=== PATIENT | male | born 1990 | race American Indian/Alaskan Native ===

== ENCOUNTER 2017-09-17 18:31 | Emergency (ER) | payer OTHER ==
[2017-09-17 18:46] VITALS: BP 136/79
[2017-09-17] MEDS ORDERED: Ibuprofen 600 MG Tab PO ONE (19:21)
[2017-09-17] MEDS ORDERED: Amoxicillin 500 MG Cap PO ONE (19:21)
--- NOTE | 2017-09-17 19:30 | EDM.PDOC ---
ED HPI GENERAL MEDICAL PROBLEM - General Chief Complaint: ENT Problem Stated Complaint: toothache Time Seen by Provider: 09/17/17 19:20 Source of Information: Reports: Patient History Limitations: Reports: No Limitations - History of Present Illness INITIAL COMMENTS - FREE TEXT/NARRATIVE: c/o toothache left upper wisdom tooth for past few days now making back of throat hurt Left Upper Tooth/Teeth Pain Score (Numeric/FACES): 9 - Related Data Allergies Allergy/AdvReac Type Severity Reaction Status Date / Time No Known Allergies Allergy Verified 09/17/17 18:45 Home Meds: Home Meds . [No Known Home Meds] 02/20/16 [History] Past Medical History HEENT History: Reports: None Cardiovascular History: Reports: None Respiratory History: Reports: None Gastrointestinal History: Reports: None Genitourinary History: Reports: None Musculoskeletal History: Reports: None Neurological History: Reports: None Psychiatric History: Reports: None Endocrine/Metabolic History: Reports: None Hematologic History: Reports: None Immunologic History: Reports: None Oncologic (Cancer) History: Reports: None Dermatologic History: Reports: None - Infectious Disease History Infectious Disease History: Reports: None - Past Surgical History Head Surgeries/Procedures: Reports: None Social & Family History - Family History Family Medical History: Noncontributory - Tobacco Use Smoking Status *Q: Current Every Day Smoker Years of Tobacco use: 10 Packs/Tins Daily: 1 Used Tobacco, but Quit: No - Recreational Drug Use Recreational Drug Use: No ED ROS ENT - Review of Systems Review Of Systems: See Below Constitutional: Reports: Fever HEENT: Reports: Dental Pain (left upper wisdom tooth radiating to tonsil) Respiratory: Reports: No Symptoms Cardiovascular: Reports: No Symptoms Endocrine: Reports: No Symptoms GI/Abdominal: Reports: No Symptoms Musculoskeletal: Reports: No Symptoms Skin: Reports: No Symptoms ED EXAM, ENT - Physical Exam Exam: See Below Exam Limited By: No Limitations General Appearance: Alert, Mild Distress Eye Exam: Bilateral Eye: EOMI Ears: Normal External Exam, Normal TMs Nose: Normal Inspection Mouth/Throat: Dental Abcess (left upper posterior molar gum swollen, left plsterior pharnyx inflammed), Dental Pain, Dental Tenderness, Tonsillar Erythema (left) Head: Atraumatic, Normocephalic Neck: Normal Inspection, Supple, Non-Tender, Lymphadenopathy (L). No: Lymphadenopathy (R) Respiratory/Chest: No Respiratory Distress, Lungs Clear, Normal Breath Sounds Cardiovascular: Normal Peripheral Pulses, Regular Rate, Rhythm Extremities: Normal Inspection Neurological: Alert, Oriented Skin: Warm, Dry, Intact, Normal Color Course - Vital Signs Last Recorded V/S: Last Vital Signs Temp 98.5 F 09/17/17 18:44 Pulse 99 09/17/17 18:44 Resp 16 09/17/17 18:44 BP 136/79 09/17/17 18:44 Pulse Ox 100 09/17/17 18:44 - Orders/Labs/Meds Meds: Medications Discontinued Medications Generic Name Dose Route Start Last Admin Trade Name Kenjiq PRN Reason Stop Dose Admin Amoxicillin 1,000 mg 09/17/17 19:21 09/17/17 19:24 Amoxil PO 09/17/17 19:22 1,000 mg ONETIME ONE Administration Ibuprofen 600 mg 09/17/17 19:21 09/17/17 19:25 Motrin PO 09/17/17 19:22 600 mg ONETIME ONE Administration Departure - Departure Time of Disposition: 19:26 Disposition: Home, Self-Care 01 Condition: Good Clinical Impression: Dental abscess - Discharge Information Instructions: Dental Abscess, [id number] Additional Instructions: amoxicillin 875mg twice daily for 10 days follow up with dentist this week ibuprofen 600mg every 6 hours as needed for pain salt water or 1/2 strength listerine mouthwash gargle every 2 hours as needed for discomfort chloraseptic throat spray as needed
== END 2017-09-17 19:32 | disposition home or self-care (01) ==
LOC: DL.ED 18:31
DX: K04.7 Periapical abscess without sinus (principal); F17.210 Nicotine dependence, cigarettes, uncomplicated
CPT/HCPCS: 99282; A9270; 99283

== ENCOUNTER 2019-05-19 17:00 | Emergency (ER) | payer OTHER ==
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
[2019-05-19] MEDS: Iopamidol 612 MG/ML 100 ML Bottle IVPUSH ONE (17:40)
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
[2019-05-19 18:15] LABS: ANION GAP 10.9; CHLORIDE,CL 102 mmol/L (101-111); SODIUM,NA 137 mmol/L (135-145)
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
== END 2019-05-19 17:52 ==
LOC: DL.ED 17:00
DX: S06.0X9A Concussion with loss of consciousness of unspecified duration, initial encounter (principal); S32.019A Unspecified fracture of first lumbar vertebra, initial encounter for closed fracture; S32.029A Unspecified fracture of second lumbar vertebra, initial encounter for closed fracture; S30.810A Abrasion of lower back and pelvis, initial encounter; K31.0 Acute dilatation of stomach; F10.129 Alcohol abuse with intoxication, unspecified; F15.10 Other stimulant abuse, uncomplicated; V89.2XXA Person injured in unspecified motor-vehicle accident, traffic, initial encounter
CPT/HCPCS: 36415; 70450; 71260; 72125; 72128; 72131; 74177; 80053; 80305-QW; 81001; 82962; 85025; 85610; 85730; 86850; 86900; 86901; 99291-25; 99292; G0480; Q9967